=== PATIENT | female | born 1950 | race Caucasian/White ===

== ENCOUNTER 2021-08-15 00:24 | Observation (INO) | payer MEDICARE ==
[~2021-08-15] VITALS: Ht 170.2 cm; Wt 108.5 kg
[2021-08-15 03:16] LABS: Anti-Xa UFH, PHA Monitoring <0.10 IU/mL; International Normalized Ratio 1.02; Prothrombin Time Results 10.7 Sec (9.7-11.5)
--- NOTE | 2021-08-15 07:08 | NUR ---
SHIFT SUMMARY RECIEVED REPORT FROM SUSAN AT [facility], PATIENT ARRIVED TO UNIT AT 0047. PATIENT ALERT AND ORIENTED X4, ANXIOUS AND DIFFICULT TO REDIRECT. SPEECH NONSENSICLE AT TIMES AND PATIENT MAKES UP WORDS AND RAMBLES. PER EMS SHE HAD 3 MG ATIVAN DURING TRANSPORT AND PATIENT WAS BECOMING INCREASINGLY LETHARGIC. 02 SATS >93% ON RA WHILE AWAKE, 2L NC NEEDED WHILE SLEEPING TO MAINTAIN SATS. HR SR @60s-70s. BP STABLE. PATIENT DENIES CP/PRESSURE. HEPARIN RESTARTED. PATIENT UP TO BEDSIDE COMMODE BUT UNABLE TO VOID. EKG DONE WHEN PATIENT ARRIVED, IN CHART. CARDIOLOGY CONSULT CALLED. PATIENT ABLE TO REPOSITION SELF AND REFUSES ASSISTANCE SAYING SHE CAN DO IT HERSELF. BED ALARM ON DUE TO PATIENT BEING FALL RISK AND HX OF FALL.
[2021-08-15 10:00] LABS: BASOPHILS ABSOLUTE AUTO 0.06 K/mm3 (0.00-0.23); BASOPHILS PERCENT AUTO 1 % (0-2); EOSINOPHILS ABSOLUTE AUTO 0.34 K/mm3 (0.00-0.68); EOSINOPHILS PERCENT AUTO 3 % (0-6); Hematocrit 37.3 % (33.0-51.0); Hemoglobin 12.2 g/dL (11.5-16.0); IMMATURE GRAN ABSOLUTE AUTO 0.02 K/mm3 (0.00-0.10); IMMATURE GRAN PERCENT AUTO 0 % (0-1); LYMPHOCYTES ABSOLUTE AUTO 3.33 K/mm3 (0.84-5.20); LYMPHOCYTES PERCENT AUTO 33 % (21-46); MONOCYTES ABSOLUTE AUTO 0.65 K/mm3 (0.16-1.47); MONOCYTES PERCENT AUTO 7 % (4-13); Mean Corpuscular HGB 28.6 pg (26.0-34.0); Mean Corpuscular HGB Conc 32.7 g/dL (31.5-36.5); Mean Corpuscular Volume 88 fL (80-100); Mean Platelet Volume 9.7 fL (9.1-12.4); NEUTROPHILS ABSOLUTE AUTO 5.62 K/mm3 (1.96-9.15); NEUTROPHILS PERCENT AUTO 56 % (41-73); Platelet Count 332 K/mm3 (150-400); RDW Coefficient Variation 13.9 % (11.7-14.2); RDW Standard Deviation 44.4 fL (35.1-46.3); Red Blood Cell Count 4.26 M/mm3 (3.80-5.20); White Blood Cell Count 10.02 K/mm3 (4.00-11.30)
[2021-08-15] MEDS ORDERED: DULO60 PO (10:06)
[2021-08-15] MEDS ORDERED: GABA300 PO (10:07)
[2021-08-15] MEDS ORDERED: FURO20 PO (10:07)
[2021-08-15] MEDS ORDERED: Prinivil10 MG PO (10:08)
[2021-08-15 10:27] LABS: Alanine Aminotransfer (ALT/SGP 23 U/L (12-78); Albumin, Blood 3.1 g/dL (3.4-5.0); Albumin/Globulin Ratio 0.8 (0.8-1.8); Alk Phos 89 U/L (50-136); Anion Gap 3 mmol/L (6-16); Aspartate Aminotrans (AST/SGOT 21 U/L (12-37); Bilirubin, Total 0.3 mg/dL (0.1-1.0); Blood Urea Nitrogen 11 mg/dL (8-24); CO2, Blood 29 mmol/L (21-32); Calcium, Blood 8.4 mg/dL (8.5-10.1); Chloride, Blood 106 mmol/L (98-108); Creatinine, Blood 0.69 mg/dL (0.40-1.00); Globulin, Blood 3.9 g/dL (2.2-4.0); Glomerular Filtration Rate >60 (60-); Glucose, Blood 103 mg/dL (70-99); Magnesium, Blood 2.1 mg/dL (1.6-2.4); Potassium, Blood 4.7 mmol/L (3.5-5.5); Sodium, Blood 138 mmol/L (136-145)
--- NOTE | 2021-08-15 12:44 | NUR ---
REASSESSMENT PT HAS BEEN RESTING IN BED THROUGHOUT THE MORNING. WITH EVERY INTERACTION SHE MENTIONS HOW SHE TIRED SHE IS AND ASKS TO BE LEFT ALONE SO SHE CAN JUST SLEEP. PT HADN'T VOIDED SINCE ARRIVAL THOUGH SO SHE FINALLY AGREED TO GET UP AND TRY TO VOID AND WAS ABLE TO GO 150ML ON THE COMMODE. PT WAS UNSTEADY AT FIRST ON HER FEET, BUT WAS MUCH MROE STEADY ONCE SHE AGREED TO USE A WALKER. WHEN SHE GOT BACK IN BED PT HAD DIFFICULTY GET RESITUATED, BUT GOT IRRITATED WITH STAFF TRYING TO HELP HER. SHE ASKED FOR HELP SCOTTING HER BOTTOM BACK, BUT DIDN'T WANT STAFF TO LAY HER BACK ANY. EDUCATED PT ON THE SAFETY CONERNS TO STAFF MOVING PT'S AROUND, BUT PT WAS STILL DISAGREEABLE AND ULTIMATELY DECIDED TO CONTINUE TO TRY AND REPOSITION HERSELF. PT ALSO GOT IRRITATED WITH THIS NURSE FOR TAKING HER HOME MEDICATIONS OUT OF HER PURSE WHEN SHE REQUESTED IT. PT HAD MADE SEVERAL COMMENTS ABOUT WANTING TO TAKE HER CYMBALTA AND HOW SHE TOOKE HER HOME MEDS WHEN SHE WAS AT [facility] LAST NIGHT. TRIED TO EDUCATE PT ON THE SAFETY ISSUES WITH PT'S TRYING TO TAKE THEIR OWN MEDS AND STAFF NOT KNOWING, POTENTIAL FOR DOUBLE DOSING AND PT WAS NOT RECEPTIVE. THIS NURSE DID SPEAK WITH DR. RIOS AND GOT PT'S CYMBALTA ORDERED AND GAVE PT HER DOSE (FROM OUR MEDS) AND PT WAS LESS WORRIED ABOUT BEING FROM HER HOME MEDICATIONS AFTER THAT. OTHERWISE, PT'S ASSESSMENT HAS NOT CHANGED FROM THIS MORNING. SHE CONTINUES TO DENY CHEST PAIN. DR. MICHELLE ORDERED HEPARIN STOPPED WHEN HE ROUNDED THIS MORNING. PLAN IS FOR ANGIO AND PT IS AGREEABLE TO THAT. SHE SPOKE WITH HER CHANO ON HER CELL PHONE THIS MORNING AND UPDATED HER.
--- NOTE | 2021-08-15 14:53 | NUR ---
PT INSISITED ON GETTING UP AND WALKING AROUND. 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 PT INSISTED ON WALKING AROUND THE ROOM STILL. PTNOW SITTING IN A CHAIR AND INSISTED THAT HER HOME MEDICATIONS BE RIGHT BESIDE HER. ONCE AGAIN EDUCATED PT THAT SHE SHOULD NOT TAKE HER OWN MEDICATIONS, THEY WILL BE PROVIDED TO HER. PT RESPONDS BY SAYING THIS NURSE IS BEING BOSSY AND WON'T LET HER DO ANYTHING. (PT WAS UPSET BECAUSE THIS NURSE WANTED TO PUT CHAIR IN A SPOT WHERE THE CALL LIGHT WILL REACH). EXPLAINED TO PT THAT IT IS THIS NURSE'S RESPONSIBLITY TO LET HER KNOW OF THE RISKS INVOLVED WITH THE THINGS SHE WANTS TO DO AND REMINDED HER THAT EVEN THOUGH SHE FEELS FINE SHE IS SICK AND HAS HAD A HEART ATTACK. PT STILL UNHAPPY WITH THIS NURSE. PT'S DAUGHTER IS ON THE WAY TO VISIT HER. WILL TRY TO GET PT TO ALLOW HER CHANO TO TAKE HER MEDICATIONS HOME.
--- NOTE | 2021-08-15 15:43 | NUR ---
PT INSISTING ON AMBULATING IN THE ROOM AGAIN AFTER SETTING OFF THE TAB ALARM. PT COMPLAINED ABOUT FEELING CLAUSTROPHOBIC AND ASKED TO STAND BY THE WINDOW SO STOOD BY THE WINDOW WITH HER FOR ABOUT 10 MINUTES. PT UPSET ABOUT NOT BEING ABLE TO WALK AROUND FREELY, ONCE AGAIN EXPLAINED THE RISKS TO HER HEART WELL THE FALL RISK. PT SAT ON THE TOILET AND WHEN SHE LEANED FORWARD TO WIPE THIS RN TOOK A STEP CLOSER IN CASE SHE FELL FORWARD, BUT PT TOLD THIS NURSE TO BACK UP OUT OF ARMS REACH AND REFUSED TO HAVE THIS NURSE CLOSE. PT ALSO UPSET ABOUT NOT BEING ABLE TO EAT OR DRINK, ONCE AGAIN REASONING EXPLAINED SHE IS WAITING TO GO TO [facility] ALL ROUND. EXPLAINED THAT HER PROCEDURE WAS DELAYED BECAUSE OF AN EMERGENT CASE, BUT PT IS STILL UNHAPPY. OFFERED SWAB BUT SHE REFUSED. PT ALSO SAID THAT SHE PLANS ON TAKING HER OWN HOME MEDICATIONS. ONCE AGAIN EXPLAINED THE RISKS OF THAT INCLUDING SIGNIFICANT RISK FOR GETTING A DOUBLE DOSE BUT PT INSISTS SHE WON'T LET THAT HAPPEN. SPOKE WITH DR. RIOS ABOUT IT AND HE DECIDED TO LET PT TAKE HER OWN MEDS BUT REQUEST THAT PT ONLY TAKES THEM WITH THE NURSE PRESENT. DISCUSSED THIS WITH THE PT WHOSE DAUGHTER IS NOW PRESENT AND RELL ORDOÑEZ RN CAME IN AND TALKED WITH HER WELL. AFTER MUCH DISCUSSION AND NEGOTIATION, PT FINALLY AGREED TO TAKE THE MEDICATIONS PROVIDED BY THE HOSPITAL AND TO LEAVE HER HOME MEDICATIONS UP IN THE CABINET AND NOT TAKE THEM.
--- NOTE | 2021-08-15 16:30 | NUR ---
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
--- NOTE | 2021-08-15 18:06 | NUR ---
SHIFT SUMMARY PT CONTINUED TO DENY CHEST PAIN THROUGHOUT THE SHIFT. 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 RA WHILE AWAKE, 2L WHILE SLEEPING FOR DESATURATION TO 85%. LUNGS CLEAR. SR, BP STABLE. PT WAS GETTING UP TO THE COMMODE OR TOILET TO VOID, DARK CL YELLOW URINE. AGREEMENT FINALLY REACHED ON PT'S MEDS. AWAITING RETURN FROM MOLDING UTILITY WORKER.
--- NOTE | 2021-08-15 18:57 | NUR ---
PT BACK FROM [facility]. PT HAS A SMALL AMT OF SWELLING ABOVE THE R TR BAND. [facility]ELTER STAFF EVALUATED IT AND DR. SHAIKH EVALUATED IT AND DECIDED IT DIDN'T NEED ANY FURTHER INTERVENTION. OUTLINE OF EDEMA MARKED. PT ALSO HAS SOME REDNESS ON HER NECK. BUTTER MELTER STAFF SAYS SHE WAS SCRATCHING AT HER NECK AND THAT'S WHERE THE DRAPE WAS HANGING. PT DENIES ANY ITCHING IN HER MOUTH OR DIFFICULTY SWALLOWING. PT GIVEN WATER UPON RETURN AND DINNER TRAY. PT IS SLEEPY AND NEEDS FREQUENT REMINDING TO NOT USE HER R HAND. PT'S CHANO AT THE BEDSIDE INITIALLY BUT NOW HAS LEFT.
--- NOTE | 2021-08-15 21:01 | NUR ---
ASSUMED CARE AT 1900 PATIENT IS LETHARGIC, RESPONDS TO VERBAL STIMULI, AND ORIENTED X4, BUT FORGETFULL AND NEEDS INSTRUCTIONS REPEATED SEVERAL TIMES. APPEARS ANXIOUS WHEN AWAKE. 02 SATS 93% WHILE AWAKE, 2L NC WHILE SLEEPING TO MAINTAIN SATURATION >92%. HR SR @70. BP STABLE. DENIES CP PRESSURE. EKG DONE AT START OF SHIFT S/P ANGIO. TR BAND IN PLACE AT RIGHT RADIAL SITE, SMALL HEMATOMA OUTLINED BY CARRILLO RN, UNCHANGED. PER CARRILLO RICKETTS DR. AWARE OF HEMATOMA. SITE WNL OTHERWISE. WILL START REMOVING AIR FROM TR BAND. PATIENT REPOSITIONS SELF IN BED. CURRENTLY EATING DINNER. CALL LIGHT IN REACH AND BED ALARM ON. SEE SHIFT ASSESSMENT FOR MORE DETAIL.
--- NOTE | 2021-08-16 02:49 | NUR ---
STARTED DEFLATING TR BAND @2130, HEMATOMA PRESENT BUT REMAINED UNCHANGED, DEFLATED SLOWLY. TR BAND OFF AT 0230, CLEAR DRESSING AND SPLINT IN PLACE. NO BLEEDING, WILL CONTINUE TO MONITOR.
--- NOTE | 2021-08-16 05:40 | NUR ---
SHIFT SUMMARY PATIENT IS ALERT AND ORIENTED X4 BUT FORGETFULL AND ANXIOUS. ASKS THE SAME QUESTION REPEATEDLY AND IS DIFFICULULT TO REDIRECT. 02 SATS 94% ON RA WHILE AWAKE AND 2L NC WHILE SLEEPING. LS CLEAR TO DIMINISHED. HR SR @60s. BP STABLE. PATIENT DENIES CP/PRESSURE THROUGH THE NIGHT. TR BAND OFF OF RIGHT RADIAL SITE AT 0230, SMALL HEMATOMA OUTLINED AND UNCHANGED FROM PREVIOUS SHIFT, SENSATION INTACT, CAP REFILL <3 SECONDS. CLEAR DRESSING AND SPLINT IN PLACE, CONSTANT REMINDERS TO PATIENT NOT TO USE HER RIGHT ARM. SBA TO BSC, CLEAR YELLOW OUTPUT. PATIENT STATED SHE COULD REPOSITION HERSELF THROUGH THE NIGHT AND REFUSED ASSISTANCE. CALL LIGHT IN REACH AND BED ALARM ON.
[2021-08-16] MEDS ORDERED: ASPI81CH PO (10:56)
[2021-08-16] MEDS ORDERED: ATOR80 PO (10:57)
[2021-08-16] MEDS ORDERED: CLOP75 PO (10:57)
[2021-08-16] MEDS ORDERED: METO50ER PO (10:58)
--- NOTE | 2021-08-16 11:39 | NUR ---
PT GOT THE TAB ALARM OFF AND STARTED GETTING UP TO THE RESTROOM ON HER OWN WITHOUT ANY STAFF IN THE ROOM. FOUND PT STANDING UP WITH HER CHANO OUTSIDE THE ROOM. THIS RN WAS APPROACHING THE ROOM PT HEARS SAYING THAT SHE WAS UNSTEADY. ENTERED THE ROOM AND PT IMMEDIATELY REQUESTED THIS NURSE LEAVE. EXPLAINED TO PT THAT SHE NEEDS TO HAVE A STAFF MEMBER IN THE ROOM WHEN SHE IS STANDING AND MOVING AROUND ROOM FOR HER SAFETY. FALL RISKS EXPLAIEND TO HER AND RISK FOR INJURY. PT SAYS SHE UNDERSTANDS ALL RISKS AND ASSUMES ALL THE RISK BUT WILL NOT HAVE ANYBODY STANDING WITHIN ARMS REACH OF HER WHILE SHE IS GOING TO THE BATHROOM OR GETTING DRESSED. THIS RN CONFIRMED THAT PT UNDERSTANDS SHE HAS A MUCH HIGHER RISK FOR FALLING AND INJURY BEING IN THE HOSPITAL AND HAVING A STAFF MEMBER PRESENT CAN SIGNIFICANTLY REDUCE THAT RISK, BUT PT INSISTS SHE UNDERSTANDS THE RISK AND DOESN'T WANT HELP OR ANYBODY IN THE ROOM WITH HER. PT'S CHANO WAS OUTSIDE THE CURTAIN DURING THIS CONVERSATION WITHIN LISTENING DISTANCE.
--- NOTE | 2021-08-16 13:13 | NUR ---
discharge. Pt discharged to home via private vehicle with her daughter. Pt given discharge instructions regarding medications, follow up appointments, and activity restrictions regarding R tr band site. Pt verbalized all instructions back to this rn. IVs removed. Pt able to dress herself. Echo completed and Dr. Alvarez gave ok for pt to leave. Pt escorted out in wc by sharda.
== END 2021-08-16 13:34 | disposition home or self-care (01) ==
LOC: ICUW 00:24
PROVIDERS: Internal Medicine Cardiovascular Disease; ADMIT Internal Medicine
DX: I21.4 Non-ST elevation (NSTEMI) myocardial infarction (principal); I10 Essential (primary) hypertension; R79.89 Other specified abnormal findings of blood chemistry; E78.5 Hyperlipidemia, unspecified; E11.9 Type 2 diabetes mellitus without complications; Z87.891 Personal history of nicotine dependence; E66.01 Morbid (severe) obesity due to excess calories
CPT/HCPCS: 36415; 76937; 80053; 82947; 83735; 84484; 85025; 85347; 85520; 85610; 86850; 86900; 86901; 93005; 93010; 93306; 93458; 93571; 94762; 99152; 99153; A9270; C1725; C1769; C1874; C1887; C1894; C9600; J0360; J1200; J1644; J1720; J2250; J2930; J3010; J7030; J7040; Q9967